=== PATIENT | female | born 1955 | race Caucasian/White ===

== ENCOUNTER 2022-03-03 13:14 | Observation (INO) ==
--- NOTE | 2022-03-03 13:34 | Emergency Department Note ---
Weakness HPI General Chief complaint: Stroke Symptoms Stated complaint: left sided weakness, left arm Time Seen by Provider: 03/03/22 13:17 Source: patient Mode of arrival: ambulatory Limitations: no limitations History of Present Illness HPI Narrative: Narrative: 66-year-old female with past medical history of hypertension, diabetes mellitus, DVT, mini strokes on Eliquis and as below presents with sudden onset of headache and left arm weakness for 45 minutes prior to arrival to ER. No dizziness chest pain abdominal pain nausea vomiting constipation diarrhea fever or chills. Her blood pressure is 125/69 pulse 83 respiration 20 temperature 98.6 O2 sat 97% on room air Related Data Home Medications Medication Instructions Recorded Confirmed furosemide 40 mg tablet 40 mg PO QDAY 06/30/17 03/03/22 losartan 100 mg tablet 100 mg PO QDAY 06/30/17 03/03/22 multivitamin (Multiple Vitamins 1 tab PO QDAY 06/30/17 03/03/22 tablet) spironolactone 25 mg tablet 25 mg PO QAM 06/30/17 03/03/22 zinc 1 tab PO QDAY 07/27/17 03/03/22 cinnamon bark 500 mg capsule 500 mg PO BID 03/10/18 03/03/22 insulin aspart U-100 100 unit/mL 10 unit subcut QID diabetes 10/15/20 03/03/22 (3 mL) subcutaneous pen (Novolog Flexpen U-100 Insulin aspart) insulin detemir U-100 100 unit/mL 34 unit subcut BID 10/15/20 03/03/22 (3 mL) subcutaneous pen (Levemir FlexTouch U-100 Insulin) apixaban 5 mg tablet (Eliquis) 5 mg PO BID 08/16/21 03/03/22 mycophenolate mofetil 500 mg tablet 500 mg PO BID 08/16/21 03/03/22 cholecalciferol (vitamin D3) 25 25 mcg PO QDAY 03/04/22 03/04/22 mcg (1,000 unit) tablet (Vitamin D3) Previous Rx's Medication Instructions Recorded blood-glucose meter (FreeStyle #1 ea 10/04/17 Me[place]any Lite kit) pen needle, diabetic 32 gauge x #90 ea 01/28/18 5/32" (Comfort EZ Pen Vale) simvastatin 40 mg tablet 40 mg PO QHS cholesterol #90 tabs 03/28/19 gabapentin 100 mg capsule 100 mg PO QHS #30 caps 04/10/20 Allergies Allergy/AdvReac Type Severity Reaction Status Date / Time isosorbide [From Ismo] Allergy Unknown Rash, Verified 03/03/22 13:22 nausea, fever Review of Systems ROS ROS Narrative: Narrative: All systems ED: reviewed and negative except as stated. 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) Arthritis (Chronic) Blood clot in vein (Chronic) Muscle pain (Chronic) DM type 1 (diabetes mellitus, type 1) (Chronic) Gallbladder problem (Chronic) Hypertension, essential (Chronic) Hyperlipidemia (Chronic) Joint pain (Chronic) Stomach ulcer (Chronic ~1998) Stroke (Acute) CKD (chronic kidney disease) (Chronic) Systemic lupus erythematosus (Acute ~1981) Fibromyalgia (Acute) Diabetic nephropathy, type I (Chronic) Hypertensive kidney disease (Chronic) CKD (chronic kidney disease) stage 3, GFR 30-59 ml/min (Chronic) Hypertension 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) Localized edema due to fluid overload (Chronic) Vitamin D deficiency (Chronic) Secondary hyperparathyroidism of renal origin (Chronic) Renal failure (Chronic) Diabetes (Chronic) Lupus (Chronic) AGUSTO positive (Acute) Polyarthralgia (Acute) Osteoarthritis (Acute) Trigger finger of right hand (Acute) Elevation of levels of liver transaminase levels (Acute) Leukocytosis, unspecified (Acute) Transaminitis (Acute) Myalgia, unspecified site (Acute) Medical History (Updated 03/03/22 @ 18:09 by Eliezer Arteaga MD) AGUSTO positive Arthritis Blood clot in vein CKD (chronic kidney disease) CKD (chronic kidney disease) stage 3, GFR 30-59 ml/min Diabetes Diabetic nephropathy, type I DM type 1 (diabetes mellitus, type 1) at 8 years old Fibromyalgia Gallbladder problem Removed Head injury Hyperlipidemia Hypertension associated with chronic kidney disease due to type 1 diabetes mellitus Hypertension, essential Hypertensive kidney disease Joint pain Localized edema due to fluid overload alf current use of anticoagulant therapy (~1999) Lupus Muscle pain Osteoarthritis Polyarthralgia Renal failure Secondary hyperparathyroidism of renal origin Stomach ulcer (~1998) Stroke Systemic lupus erythematosus (~1981) Trigger finger of right hand Vitamin D deficiency Surgical History H/O breast biopsy H/O colonoscopy 07/2008 repeat 10 H/O total hysterectomy 1993 History of cholecystectomy 1999 Hx of appendectomy 2000 Hx of tonsillectomy 1972 Family History Family/Other Cancer Aunts Family/Other Cancer Uncles Brother Cancer Diabetes Brothers Hypertension, essential Brothers Heart attack Father Cancer Diabetes Suicide Mother Cancer Hypertension, essential Sister Diabetes Sisters Hypertension, essential Sisters Grandmother Diabetes Maternal Grandmother Diabetes Paternal Family/Other Diabetes Cousins Social History Smoking Status: Never smoker Alcohol Intake Frequency: does not drink Substance Use: does not use Exam Narrative Narrative: Narrative: General Limitations: no limitations General appearance: Present alert and in no apparent distress Eye Eye: Present normal appearance Respiratory Respiratory: Present normal lung sounds bilaterally Cardiovascular Cardiovascular: Present regular rate, normal rhythm and normal heart sounds Adbominal Abdominal: Present soft and normal bowel sounds; Absent tenderness or organome falguni Extremities Extremities: Present other (Weakness left ar as compared to right side with weak cook relief) Neurological Neurological: Present alert and oriented X3 Course Course Course Narrative: Stroke protocol was called. Stat CT scan of head was done which is negative. Consulted telemetry neurology Dr. Mcleod we had the CT result and will order the CT angio of head and neck. Dr. Driver saw CT and you scan of head and neck and advised admission for further work-up of stroke. Arnav will be admitted he re to the medical surgical floor as discussed with Dr. Denis Patients UA came back which is consistent with UTI. Cipro 4 mg IV will be given Vital Signs Vital signs: Vital Signs Temperature 98.6 F 03/03/22 13:19 Pulse Rate 83 03/03/22 13:19 Respiratory Rate 20 03/03/22 13:19 Blood Pressure 125/69 03/03/22 13:19 Pulse Oximetry (%) 97 03/03/22 13:19 Oxygen Delivery Method 03/03/22 13:19 Temperature 97.4 F 03/04/22 04:01 Pulse Rate 70 03/04/22 06:01 Respiratory Rate 18 03/04/22 06:01 Blood Pressure 132/62 03/04/22 06:01 Pulse Oximetry (%) 98 03/04/22 06:01 Oxygen Delivery Method 03/04/22 06:01 MDM MDM Narrative Medical decision making narrative: Narrative: Lab Data Result diagrams: 03/04/22 06:00 03/04/22 06:00 Labs: Lab Results 03/03/22 03/03/22 03/03/22 Range/Units 13:47 13:49 13:49 WBC 9.4 (4.5-11.0) K/mcL RBC 4.11 (3.59-5.38) M/mcL Hgb 11.3 (11.2-15.7) g/dL Hct 37.2 (34.1-44.9) % POC Hct (36-48) MCV 90.5 (80.0-100.0) fL MCH 27.5 (26.0-34.0) pg MCHC 30.4 L (31.0-36.0) g/dL RDW 13.1 (11.5-14.5) % Plt Count 320 (140-440) K/mcL MPV 9.7 (8.8-12.5) fL Immature Gran % (Auto) 0.4 (0.0-0.5) % Neut % (Auto) 65.6 (38.0-78.0) % Lymph % (Auto) 24.0 (15.5-49.0) % [place] % (Auto) 8.6 (1.0-12.0) % Eos % (Auto) 1.1 (0.0-7.0) % Baso % (Auto) 0.3 (0.0-2.0) % Lymph # (Auto) 2.27 (1.50-4.80) K/mcL [place] # (Auto) 0.81 (0.10-0.90) K/mcL Eos # (Auto) 0.10 (0.00-0.70) K/mcL Baso # (Auto) 0.03 (0.00-0.30) K/mcL Immature Gran # 0.04 (0.00-0.05) K/mcl Absolute Neutrophils 6.19 (1.80-8.00) K/mcL POC PT 14.5 (11.9-14.5) POC INR 1.2 (0.8-1.2) APTT 32.7 (20.0-37.0) sec POC Sodium (133-145) POC Potassium (3.3-5.1) POC Chloride (96-108) POC Total CO2 (22-30) POC BUN (6-20) POC Creatinine (0.6-1.2) POC Glucose (70-105) POC WB Ioniz Calcium (1.16-1.32) Total Bilirubin (0.1-1.0) mg/dL Direct Bilirubin (0-0.3) mg/dL AST (<32) U/L ALT (<40) U/L Alkaline Phosphatase (39-117) U/L Total Protein (5.9-8.4) gm/dL Albumin (3.2-5.2) gm/dL Globulin (2.2-3.7) gm/dL Urine Color Urine Appearance (Clear) Urine pH (5.0-9.0) Ur Specific Isabella (1.000-1.035) Urine Protein (Negative) mg/dL Urine Glucose (UA) (Negative) mg/dL Urine Ketones (Negative) mg/dL Urine Occult Blood (Negative) mg/dL Urine Nitrate (Negative) Urine Bilirubin (Negative) mg/dL Urine Urobilinogen mg/dL Ur Leukocyte Esterase (Negative) /uL Urine RBC (0-3) /hpf Urine WBC (0-4) /hpf Ur Squamous Epith Cells (0-4) /hpf Urine Bacteria (0) /hpf Urine Mucus (None) /hpf Ur Culture Indicated? POC Troponin I (0.02-0.08) 03/03/22 03/03/22 03/03/22 Range/Units 13:49 13:56 13:59 WBC (4.5-11.0) K/mcL RBC (3.59-5.38) M/mcL Hgb (11.2-15.7) g/dL Hct (34.1-44.9) % POC Hct 35.0 L (36-48) MCV (80.0-100.0) fL MCH (26.0-34.0) pg MCHC (31.0-36.0) g/dL RDW (11.5-14.5) % Plt Count (140-440) K/mcL MPV (8.8-12.5) fL Immature Gran % (Auto) (0.0-0.5) % Neut % (Auto) (38.0-78.0) % Lymph % (Auto) (15.5-49.0) % [place] % (Auto) (1.0-12.0) % Eos % (Auto) (0.0-7.0) % Baso % (Auto) (0.0-2.0) % Lymph # (Auto) (1.50-4.80) K/mcL [place] # (Auto) (0.10-0.90) K/mcL Eos # (Auto) (0.00-0.70) K/mcL Baso # (Auto) (0.00-0.30) K/mcL Immature Gran # (0.00-0.05) K/mcl Absolute Neutrophils (1.80-8.00) K/mcL POC PT (11.9-14.5) POC INR (0.8-1.2) APTT (20.0-37.0) sec POC Sodium 140 (133-145) POC Potassium 3.9 (3.3-5.1) POC Chloride 103 (96-108) POC Total CO2 26.0 (22-30) POC BUN 33 H (6-20) POC Creatinine 1.2 (0.6-1.2) POC Glucose 90 (70-105) POC WB Ioniz Calcium 1.22 (1.16-1.32) Total Bilirubin 0.3 (0.1-1.0) mg/dL Direct Bilirubin < 0.2 (0-0.3) mg/dL AST 15 (<32) U/L ALT 11 (<40) U/L Alkaline Phosphatase 80 (39-117) U/L Total Protein 6.6 (5.9-8.4) gm/dL Albumin 4.1 (3.2-5.2) gm/dL Globulin 2.5 (2.2-3.7) gm/dL Urine Color Urine Appearance (Clear) Urine pH (5.0-9.0) Ur Specific Isabella (1.000-1.035) Urine Protein (Negative) mg/dL Urine Glucose (UA) (Negative) mg/dL Urine Ketones (Negative) mg/dL Urine Occult Blood (Negative) mg/dL Urine Nitrate (Negative) Urine Bilirubin (Negative) mg/dL Urine Urobilinogen mg/dL Ur Leukocyte Esterase (Negative) /uL Urine RBC (0-3) /hpf Urine WBC (0-4) /hpf Ur Squamous Epith Cells (0-4) /hpf Urine Bacteria (0) /hpf Urine Mucus (None) /hpf Ur Culture Indicated? POC Troponin I 0.01 L (0.02-0.08) 03/03/22 Range/Units 16:10 WBC (4.5-11.0) K/mcL RBC (3.59-5.38) M/mcL Hgb (11.2-15.7) g/dL Hct (34.1-44.9) % POC Hct (36-48) MCV (80.0-100.0) fL MCH (26.0-34.0) pg MCHC (31.0-36.0) g/dL RDW (11.5-14.5) % Plt Count (140-440) K/mcL MPV (8.8-12.5) fL Immature Gran % (Auto) (0.0-0.5) % Neut % (Auto) (38.0-78.0) % Lymph % (Auto) (15.5-49.0) % [place] % (Auto) (1.0-12.0) % Eos % (Auto) (0.0-7.0) % Baso % (Auto) (0.0-2.0) % Lymph # (Auto) (1.50-4.80) K/mcL [place] # (Auto) (0.10-0.90) K/mcL Eos # (Auto) (0.00-0.70) K/mcL Baso # (Auto) (0.00-0.30) K/mcL Immature Gran # (0.00-0.05) K/mcl Absolute Neutrophils (1.80-8.00) K/mcL POC PT (11.9-14.5) POC INR (0.8-1.2) APTT (20.0-37.0) sec POC Sodium (133-145) POC Potassium (3.3-5.1) POC Chloride (96-108) POC Total CO2 (22-30) POC BUN (6-20) POC Creatinine (0.6-1.2) POC Glucose (70-105) POC WB Ioniz Calcium (1.16-1.32) Total Bilirubin (0.1-1.0) mg/dL Direct Bilirubin (0-0.3) mg/dL AST (<32) U/L ALT (<40) U/L Alkaline Phosphatase (39-117) U/L Total Protein (5.9-8.4) gm/dL Albumin (3.2-5.2) gm/dL Globulin (2.2-3.7) gm/dL Urine Color Yellow Urine Appearance Clear (Clear) Urine pH 6.0 (5.0-9.0) Ur Specific Isabella 1.027 (1.000-1.035) Urine Protein Negative (Negative) mg/dL Urine Glucose (UA) Negative (Negative) mg/dL Urine Ketones Negative (Negative) mg/dL Urine Occult Blood Negative (Negative) mg/dL Urine Nitrate Negative (Negative) Urine Bilirubin Negative (Negative) mg/dL Urine Urobilinogen Negative mg/dL Ur Leukocyte Esterase 250 A (Negative) /uL Urine RBC 1 (0-3) /hpf Urine WBC 23 H (0-4) /hpf Ur Squamous Epith Cells 2 (0-4) /hpf Urine Bacteria None (0) /hpf Urine Mucus Mod A (None) /hpf Ur Culture Indicated? yes POC Troponin I (0.02-0.08) ED POC Tests ED POC Tests: SYDNEE - SARS Antigen Negative Discharge Plan Patient/Caregiver Discharge Instructions Pt seen by DEVICE TEST ENGINEER/PA only: No Clinical Impression: Stroke, UTI (urinary tract infection), bacterial Patient Disposition: Xfer As Inpt ([facility]) Condition: Fair Discharge Date/Time: 03/03/22 17:37 Discharge Location: [facility] Inpatient Discharge Comment: to ICU at 1737
[2022-03-03 13:49] LABS: POC INR 1.2 (0.8-1.2); POC Pro Time 14.5 (11.9-14.5)
[2022-03-03 14:03] LABS: POC Calcium, Ionized 1.22 (1.16-1.32); POC Creatinine 1.2 (0.6-1.2); POC Potassium 3.9 (3.3-5.1)
[2022-03-03 14:24] LABS: Basophils # (Auto) 0.03 K/mcL (0.00-0.30); Basophils % (Auto) 0.3 % (0.0-2.0); Eosinophils % (Auto) 1.1 % (0.0-7.0); Hematocrit 37.2 % (34.1-44.9); Hemoglobin 11.3 g/dL (11.2-15.7); Lymphocytes # (Auto) 2.27 K/mcL (1.50-4.80); Mean Cell Volume 90.5 fL (80.0-100.0); Mean Corpuscular HGB Conc 30.4 g/dL (31.0-36.0); Mean Platelet Volume 9.7 fL (8.8-12.5); Monocytes # (Auto) 0.81 K/mcL (0.10-0.90); Monocytes % (Auto) 8.6 % (1.0-12.0); Neutrophils % (Auto) 65.6 % (38.0-78.0); Platelet Count 320 K/mcL (140-440); RBC 4.11 M/mcL (3.59-5.38); Red Cell Distribution Width 13.1 % (11.5-14.5); WBC 9.4 K/mcL (4.5-11.0)
--- NOTE | 2022-03-03 14:29 | Cat Scan Report ---
CLINICAL INFORMATION: Neuro deficit acute stroke COMPARISON: 08/16/2021. TECHNIQUE: 2.5 mm helical slices were obtained in the skull base to vertex. Following reconstruction, axial reformatted images were reviewed at bone and parenchymal windows. The exam was performed using radiation dose optimization techniques including, but not limited to, automated exposure control, adjustment of the mA and/or kV according to patient size and use of iterative reconstruction technique. FINDINGS: The ventricles, sulci, fissures, and cisterns are symmetrically enlarged compatible with mild age-related atrophy. No extra-axial fluid collections are identified. Mild patchy chronic ischemic changes, in the deep cerebral white matter, are expected for age. There is no hemorrhage, mass effect, or edema. Bone windows show no osseous abnormality. IMPRESSION: Mild atrophy and chronic ischemic changes in the deep cerebral white matter-expected for age. No acute findings Interpreted and Authenticated by: Dusty Valencia 03/03/22
--- NOTE | 2022-03-03 14:55 | Cat Scan Report ---
CLINICAL INFORMATION: Code stroke COMPARISON: None. TECHNIQUE: 80 cc of Isovue-370 were injected intravenously , and using SmartPrep to maximize cerebral arterial opacification, 0.625 mm helical slices were obtained from the skull base through the cerebral vertex. Following reconstruction , sagittal, coronal and axial reformatted images were processed and reviewed at multiple windows and levels. 3D volume rendered and MIP images were acquired at a independent workstation. The exam was performed using radiation dose optimization techniques including, but not limited to, automated exposure control, adjustment of the mA and/or kV according to patient size and use of iterative reconstruction technique. FINDINGS: Moderate fibrofatty calcific plaque within the cavernous carotids do not appear to result in significant stenoses less than 50%. The remaining intracranial internal carotid, vertebral, basilar, anterior, middle and posterior cerebral arteries and their branches are well-opacified and normal in contour and caliber without significant stenosis, occlusion or other pathology. Superficial/deep cerebral veins and deep venous sinuses are widely patent IMPRESSION: No evidence of embolus or thrombus. Mild (less than 50%) stenoses in the cavernous segments of both intracranial internal carotid arteries due to calcific and fibrofatty plaque Interpreted and Authenticated by: Dusty Valencia 03/03/22
--- NOTE | 2022-03-03 15:05 | Cat Scan Report ---
CLINICAL INFORMATION: Code stroke COMPARISON: None. TECHNIQUE: 80 cc of Isovue-300 were injected intravenously followed by 40 cc of normal saline flush. Using SmartPrep, 0.625 helical slices were obtained from the thoracic aortic arch through the [place]. Following reconstruction, 2.5 mm sagittal, coronal and axial reformatted images were processed. MIPS , 3-D volume rendering and CPR images were also constructed. The exam was performed using radiation dose optimization techniques including, but not limited to, automated exposure control, adjustment of the mA and/or kV according to patient size and use of iterative reconstruction technique. FINDINGS: The thoracic aortic arch is normal diameter with minimal intimal thickening and conventional aortic branching. The brachiocephalic, both subclavian, both common, internal and external carotid and both vertebral arteries are widely patent without significant abnormality. Scattered thyroid nodules are unchanged: 13 mm colloid cyst superior pole left thyroid, 10 mm colloid cyst in the upper right thyroid, 12 mm mixed solid cystic nodule posterior inferior right thyroid. At C5-C6 broad disc spur complex results in moderate central canal and severe bilateral IV foraminal narrowing with exiting C6 nerve root impingement. At C6-7 broad disc spur complex results in moderate left IV foraminal line with exiting left C7 nerve root impingement. IMPRESSION: 1. Thoracic aortic arch, brachiocephalic, all carotid, both vertebral, and both subclavian arteries are widely patent 2. Thyroid nodule stable since comparison CT six months prior. Ultrasound was performed on 08/29/2021 suggest repeat thyroid ultrasound August 2022. 3. Degenerative stenosis in the lower cervical spine as described Interpreted and Authenticated by: Dusty Valencia 03/03/22
[2022-03-03 15:16] LABS: ALT/SGPT 11 U/L (<40); AST/SGOT 15 U/L (<32); Albumin 4.1 gm/dL (3.2-5.2); Alkaline Phosphatase 80 U/L (39-117); Bilirubin,Direct < 0.2 mg/dL (0-0.3); Bilirubin,Total 0.3 mg/dL (0.1-1.0); Globulin 2.5 gm/dL (2.2-3.7)
--- NOTE | 2022-03-03 17:03 | Internal Med History&Physical ---
HPI History of Present Illness Patient information: Note initiated : 03/03/22 at 4:55 pm Service Date, if different from initiated Date: [] Patient: Gini Oliveira 66 y/o F admitted on for left sided weakness, left arm. Chief Complaint: [left upper extremity weakness and numbness] Chief complaint: left upper extremity weakness and numbness History of present illness: Ms. Oliveira is a 66 year old F history of stroke affecting her right side of body in 1998, on Eliquis, SLE, type 1 diabetes with diabetic nephropathy, essential hypertension, mixed dyslipidemia, presenting with 1 day history of acute onset right upper extremity numbness and weakness. Today at around 12:20 PM when she was having lunch, she experienced acute onset right upper extremity weakness numbness and tingling. Her symptoms of weakness numbness and tingling of her left upper extremities have subjectively much improved right now. She was also experiencing left lower extremity weakness but it completely resolved before coming to our ER. She denies any chest pain or palpitations. She denies any shortness of breath. She is experiencing headache but it is at the baseline. Vital signs within normal limits. Labs also within normal limits. CT of the head without contrast did not show any acute intracranial pathologies. CT angiogram of the head and neck showing mild less than 50% stenosis in the cavernous segments of both intracranial internal carotid arteries due to calcific and fibrofatty plaques. No evidence of embolus or thrombus. Constitutional Constitutional: Absent chills, excessive sweating, fatigue, fever(s) or weakness EENT Eyes: Absent blurry vision, change in vision, loss of vision or other visual disturbances Ears: Absent decreased hearing or tinnitus Nose, mouth and throat: Absent abnormal hearing, dry mouth, headache(s), nasal congestion or sore throat Cardiovascular Cardiovascular: Absent chest pain, chest pain at rest, edema, irregular heart rhythm or palpatations Respiratory Respiratory: Absent cough, dyspnea or wheezing Gastrointestinal Gastrointestinal: Absent abdominal pain, constipation, diarrhea, nausea or vomiting Musculoskeletal Musculoskeletal: Absent back pain, deformity, limited range of motion, muscle cramps, muscle weakness or numbness Integumentary Integumentary: Absent lesions, rash or wounds Neurological Neurological: Present focal weakness, headache(s), numbness and tingling Psychiatric Psychiatric: Absent anxiety, depression or hallucinations PFSH PFSH All Active Problems (Updated 03/03/22 @ 17:15 by Maycol Denis MD) Head injury (Acute) Muscle strain of right shoulder (Acute) Multiple thyroid nodules (Acute) 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) Arthritis (Chronic) Blood clot in vein (Chronic) Muscle pain (Chronic) DM type 1 (diabetes mellitus, type 1) (Chronic) Gallbladder problem (Chronic) Hypertension, essential (Chronic) Hyperlipidemia (Chronic) Joint pain (Chronic) Stomach ulcer (Chronic ~1998) Stroke (Acute) CKD (chronic kidney disease) (Chronic) Systemic lupus erythematosus (Acute ~1981) Fibromyalgia (Acute) Diabetic nephropathy, type I (Chronic) Hypertensive kidney disease (Chronic) CKD (chronic kidney disease) stage 3, GFR 30-59 ml/min (Chronic) Hypertension associated with chronic kidney disease due to type 1 diabetes mellitus (Chronic) Localized edema due to fluid overload (Chronic) Vitamin D deficiency (Chronic) Secondary hyperparathyroidism of renal origin (Chronic) Renal failure (Chronic) Diabetes (Chronic) Lupus (Chronic) AGUSTO positive (Acute) Polyarthralgia (Acute) Osteoarthritis (Acute) Trigger finger of right hand (Acute) Elevation of levels of liver transaminase levels (Acute) Leukocytosis, unspecified (Acute) Transaminitis (Acute) Myalgia, unspecified site (Acute) Medical History (Updated 03/03/22 @ 17:15 by Maycol Denis MD) AGUSTO positive Arthritis Blood clot in vein CKD (chronic kidney disease) CKD (chronic kidney disease) stage 3, GFR 30-59 ml/min Diabetes Diabetic nephropathy, type I DM type 1 (diabetes mellitus, type 1) at 8 years old Fibromyalgia Gallbladder problem Removed Head injury Hyperlipidemia Hypertension associated with chronic kidney disease due to type 1 diabetes mellitus Hypertension, essential Hypertensive kidney disease Joint pain Localized edema due to fluid overload FPC current use of anticoagulant therapy (~1999) Lupus Muscle pain Osteoarthritis Polyarthralgia Renal failure Secondary hyperparathyroidism of renal origin Stomach ulcer (~1998) Stroke Systemic lupus erythematosus (~1981) Trigger finger of right hand Vitamin D deficiency Surgical History H/O breast biopsy H/O colonoscopy 07/2008 repeat 10 H/O total hysterectomy 1993 History of cholecystectomy 1999 Hx of appendectomy 1999 Hx of tonsillectomy 1972 Family History Family/Other Cancer Aunts Family/Other Cancer Uncles Brother Cancer Diabetes Brothers Hypertension, essential Brothers Heart attack Father Cancer Diabetes Suicide Mother Cancer Hypertension, essential Sister Diabetes Sisters Hypertension, essential Sisters Grandmother Diabetes Maternal Grandmother Diabetes Paternal Family/Other Diabetes Cousins Social History marital status: other: Children-3 smoking status: Never smoker alcohol intake frequency: does not drink substance use type: does not use MEDS/ALLERGIES Home Medications and Allergies Home Medications Medication Instructions Recorded Confirmed Type furosemide 40 mg tablet 40 mg PO QDAY 06/30/17 08/16/21 History losartan 100 mg tablet 100 mg PO QPM 06/30/17 08/16/21 History multivitamin (Multiple Vitamins 1 tab PO QDAY 06/30/17 08/16/21 History tablet) spironolactone 25 mg tablet 25 mg PO QAM 06/30/17 08/16/21 History cholecalciferol (vitamin D3) 1,000 each PO QDAY 07/27/17 08/16/21 History zinc PO QDAY 07/27/17 08/16/21 History blood-glucose meter (FreeStyle #1 ea 10/04/17 08/16/21 Rx [place] Lite kit) pen needle, diabetic 32 gauge x #90 ea 01/28/18 08/16/21 Rx 5/32" (Comfort EZ Pen [place]) cinnamon bark 500 mg capsule 500 mg PO BID 03/10/18 08/16/21 History simvastatin 40 mg tablet 40 mg PO QHS cholesterol #90 tabs 03/28/19 08/16/21 Rx gabapentin 100 mg capsule 100 mg PO QHS #30 caps 04/10/20 08/16/21 Rx insulin aspart U-100 100 unit/mL 10 unit subcut QID diabetes 10/15/20 08/16/21 History (3 mL) subcutaneous pen (Novolog Flexpen U-100 Insulin aspart) insulin detemir U-100 100 unit/mL 34 unit subcut BID 10/15/20 08/16/21 History (3 mL) subcutaneous pen (Levemir FlexTouch U-100 Insulin) apixaban 5 mg tablet (Eliquis) 5 mg PO BID 08/16/21 08/16/21 History mycophenolate mofetil 500 mg tablet 500 mg PO BID 08/16/21 08/16/21 History Allergies Allergy/AdvReac Type Severity Reaction Status Date / Time isosorbide [From Isct] Allergy Unknown Rash, Verified 03/03/22 13:22 nausea, fever EXAM Constitutional Vitals: Temp Pulse Resp BP Pulse Ox O2 Del Method 37.0 C 77 15 128/53 98 03/03/22 13:19 03/03/22 16:16 03/03/22 16:16 03/03/22 16:16 03/03/22 16:16 03/03/22 13:28 General appearance: cooperative and no acute distress Head Head exam: Present atraumatic and normocephalic Eye Eye exam: Present EOMI and PERRL ENT ENT exam: Present mucous membranes moist, normal exam and normal external ear exam Neck Neck exam: Present normal inspection; Absent lymphadenopathy, tenderness or thyromegaly Respiratory Respiratory exam: Absent accessory muscle use, respiratory distress or wheezes Cardiovascular Cardiovascular exam: Present normal rate and rhythm; Absent JVD GI/Abdominal GI/Abdominal exam: Present normal bowel sounds and soft; Absent organomegaly or tenderness Extremities Exam Extremities exam: Present full ROM, normal capillary refill and normal inspection; Absent tenderness Neurological Exam Neurological exam: Present alert, CN II-XII intact, motor sensory deficit and oriented X3 Additional comments: Motor strength 4/5 left upper extremities major muscle groups; 5/5 all other extremities Light touch sensation reduced left hand up to wrist level Coordinations such as [id number] and rapid hand movement of the left s adriana impaired. Psychiatric Psychiatric exam: Present normal affect and normal mood; Absent anxious or depressed Skin Skin exam: Present dry and intact DATA Data Completed and Pending Labs: Labs from last 24 hours 03/03/22 03/03/22 03/03/22 16:10 13:59 13:56 WBC RBC Hgb Hct POC Hct 35.0 L MCV MCH MCHC RDW Plt Count MPV Immature Gran % (Auto) Neut % (Auto) Lymph % (Auto) [place] % (Auto) Eos % (Auto) Baso % (Auto) Lymph # (Auto) [place] # (Auto) Eos # (Auto) Baso # (Auto) Immature Gran # Absolute Neutrophils POC PT POC INR APTT POC Sodium 140 POC Potassium 3.9 POC Chloride 103 POC Total CO2 26.0 POC BUN 33 H POC Creatinine 1.2 POC Glucose 90 POC WB Ioniz Calcium 1.22 Total Bilirubin Direct Bilirubin AST ALT Alkaline Phosphatase Total Protein Albumin Globulin Urine Color Pending Urine Appearance Pending Urine pH Pending Ur Specific [place] Pending Urine Protein Pending Urine Glucose (UA) Pending Urine Ketones Pending Urine Occult Blood Pending Urine Nitrate Pending Urine Bilirubin Pending Urine Urobilinogen Pending Ur Leukocyte Esterase Pending POC Troponin I 0.01 L 03/03/22 03/03/22 03/03/22 13:49 13:49 13:49 WBC 9.4 RBC 4.11 Hgb 11.3 Hct 37.2 POC Hct MCV 90.5 MCH 27.5 MCHC 30.4 L RDW 13.1 Plt Count 320 MPV 9.7 Immature Gran % (Auto) 0.4 Neut % (Auto) 65.6 Lymph % (Auto) 24.0 [place] % (Auto) 8.6 Eos % (Auto) 1.1 Baso % (Auto) 0.3 Lymph # (Auto) 2.27 [place] # (Auto) 0.81 Eos # (Auto) 0.10 Baso # (Auto) 0.03 Immature Gran # 0.04 Absolute Neutrophils 6.19 POC PT POC INR APTT 32.7 POC Sodium POC Potassium POC Chloride POC Total CO2 POC BUN POC Creatinine POC Glucose POC WB Ioniz Calcium Total Bilirubin 0.3 Direct Bilirubin < 0.2 AST 15 ALT 11 Alkaline Phosphatase 80 Total Protein 6.6 Albumin 4.1 Globulin 2.5 Urine Color Urine Appearance Urine pH Ur Specific [place] Urine Protein Urine Glucose (UA) Urine Ketones Urine Occult Blood Urine Nitrate Urine Bilirubin Urine Urobilinogen Ur Leukocyte Esterase POC Troponin I 03/03/22 13:47 WBC RBC Hgb Hct POC Hct MCV MCH MCHC RDW Plt Count MPV Immature Gran % (Auto) Neut % (Auto) Lymph % (Auto) [place] % (Auto) Eos % (Auto) Baso % (Auto) Lymph # (Auto) [place] # (Auto) Eos # (Auto) Baso # (Auto) Immature Gran # Absolute Neutrophils POC PT 14.5 POC INR 1.2 APTT POC Sodium POC Potassium POC Chloride POC Total CO2 POC BUN POC Creatinine POC Glucose POC WB Ioniz Calcium Total Bilirubin Direct Bilirubin AST ALT Alkaline Phosphatase Total Protein Albumin Globulin Urine Color Urine Appearance Urine pH Ur Specific [place] Urine Protein Urine Glucose (UA) Urine Ketones Urine Occult Blood Urine Nitrate Urine Bilirubin Urine Urobilinogen Ur Leukocyte Esterase POC Troponin I A/P Assessment and plan (1) DM type 1 (diabetes mellitus, type 1): Status: Chronic Comment: at 8 years old Qualifiers: Diabetes mellitus complication status: without complication Qualified Code(s): E10.9 - Type 1 diabetes mellitus without complications (2) Hypertension, essential: Status: Chronic (3) Hyperlipidemia: Status: Chronic Qualifiers: Hyperlipidemia type: mixed hyperlipidemia Qualified Code(s): E78.2 - Mixed hyperlipidemia (4) Diabetic nephropathy, type I: Status: Chronic (5) Stroke: Status: Acute (6) Systemic lupus erythematosus: Status: Acute Qualifiers: Systemic lupus erythematosus type: unspecified Systemic lupus erythematosus organ involvement: unspecified Qualified Code(s): M32.9 - Systemic lupus erythematosus, unspecified Narrative A/P Narrative: Assessment and Plans: 1. Acute ischemic stroke affecting the left side: Observation med surg telemetry Neuro Chek q2hr Permissive hypertensive X48hr HgA1c Lipid panel Aspirin Eliquis Statin Physical therapy Occupational therapy 2D echocardiogram MRI brain stroke protocol 2. T1DM with diabetic nephropathy: HgA1c Lantus 34 unit BID SSI AC HS Accu Chek AC HS Hypoglycemia protocol Diabetic diet 3. Essential HTN: Currently normotensive Permissive hypertensive X48hr 4. Dyslipidemia: Lipid panel Continue statin therapy 5. Systemic lupus erythematosus: Continue Cellcept GI ppx: not currently indicated DVT ppx: Eliquis Code status: Full Prognosis: guarded Disposition: observation med surg tele; PT OT Time Spent With Patient Time: Total time spent is greater than 50% in coordination of care (as documented) at patient's floor/unit and/or counseling patient: Total time spent with greater than 50% in coordination of care (as documented) at patient's floor/unit and/or counseling patient:: 50 - 70 minutes
[2022-03-03 17:08] LABS: Appearance,Urine CLEAR (Clear); Bilirubin,Urine Negative (Negative); Color,Urine YELLOW; Culture Indicated,Urine yes; Glucose,Urine (UA) Negative (Negative); Ketones,Urine Negative (Negative); Leukocyte Esterase,Urine 250 /uL (Negative); Mucus,Urine MOD /hpf; Nitrate,Urine Negative (Negative); Protein,Urine Negative (Negative); Specific Gravity,Urine 1.027 (1.000-1.035); Urine Blood Negative (Negative); Urine RBC 1 /hpf (0-3); Urine Squamous Epithelial Cell 2 /hpf (0-4); Urine WBC 23 /hpf (0-4); Urobilinogen,Urine Negative
[2022-03-03] MEDS ORDERED: DEXTROSE 50% 50 ML VIAL IV PRN (17:43)
[2022-03-03] MEDS ORDERED: ONDANSETRON 4 MG/2 ML VIAL IV PRN (17:43)
[2022-03-03] MEDS ORDERED: hydrALAZINE 20 MG/ML VIAL IV PRN (17:43)
[2022-03-03] MEDS ORDERED: SENNOSIDES 1 TABLET PO PRN (17:43)
[2022-03-03] MEDS ORDERED: DEXTROSE 31 GM ORAL.SUSP PO PRN (17:43)
[2022-03-03] MEDS ORDERED: IPRATROPIUM/ALBUTEROL 3 ML AMPUL.NEB NEB PRN (17:43)
[2022-03-03] MEDS ORDERED: LACTULOSE 20 GM/30 ML ORAL.SOL PO PRN (17:43)
[2022-03-03] MEDS ORDERED: ACETAMINOPHEN 325 MG TABLET PO PRN (17:43)
[2022-03-03] MEDS: INSULIN LISPRO 1 UNIT/0.01 ML UNIT SQ SCH ×2 (17:59→21:13)
[2022-03-03] MEDS ORDERED: CIPROFLOXACIN 400 MG/200 ML BAG IV ONE (18:07)
[2022-03-03] MEDS: MYCOPHENOLATE 250 MG CAPSULE PO SCH (20:13)
[2022-03-03] MEDS ORDERED: SIMVASTATIN 40 MG TABLET PO SCH (21:00)
[2022-03-03] MEDS ORDERED: GABAPENTIN 100 MG CAPSULE PO SCH ×2 (21:00)
[2022-03-03] MEDS: APIXABAN 5 MG TABLET PO SCH (21:12)
[2022-03-03] MEDS: DOCUSATE SODIUM 100 MG CAPSULE PO SCH (21:13)
[2022-03-03] MEDS: 0.9 % SODIUM CHLORIDE 10 ML SYRINGE IV SCH (21:14)
[2022-03-03] MEDS: INSULIN GLARGINE, HUMAN 1 UNIT/0.01 ML SQ SCH (21:14)
[2022-03-04] MEDS: 0.9 % SODIUM CHLORIDE 10 ML SYRINGE IV SCH ×2 (06:22→16:05)
[2022-03-04 06:46] LABS: Basophils # (Auto) 0.03 K/mcL (0.00-0.30); Basophils % (Auto) 0.3 % (0.0-2.0); Eosinophils # (Auto) 0.17 K/mcL (0.00-0.70); Eosinophils % (Auto) 1.9 % (0.0-7.0); Hematocrit 37.8 % (34.1-44.9); Hemoglobin 11.3 g/dL (11.2-15.7); Lymphocytes # (Auto) 2.84 K/mcL (1.50-4.80); Lymphocytes % (Auto) 32.1 % (15.5-49.0); Mean Cell Volume 92.6 fL (80.0-100.0); Mean Corpuscular HGB Conc 29.9 g/dL (31.0-36.0); Mean Platelet Volume 9.8 fL (8.8-12.5); Monocytes # (Auto) 0.71 K/mcL (0.10-0.90); Neutrophils % (Auto) 57.5 % (38.0-78.0); Platelet Count 298 K/mcL (140-440); RBC 4.08 M/mcL (3.59-5.38); WBC 8.9 K/mcL (4.5-11.0)
[2022-03-04 07:18] LABS: ALT/SGPT 9 U/L (<40); AST/SGOT 19 U/L (<32); Albumin/Globulin Ratio 1.5 (1.0-2.3); Alkaline Phosphatase 74 U/L (39-117); Bilirubin,Total 0.4 mg/dL (0.1-1.0); Blood Urea Nitrogen 23 mg/dL (8-23); Calcium 9.6 mg/dL (8.6-10.4); Carbon Dioxide 25 mmol/L (22-30); Chloride 104 mmol/L (96-108); Globulin 2.6 gm/dL (2.2-3.7); Glomerular Filtration Rate 58; Glucose 88 mg/dL (70-105); HDL Cholesterol 39 mg/dL (>40); LDL Cholesterol,Calculated 77 mg/dL (<100); Non-HDL Cholesterol 101 mg/dL (<130); Phosphorous 3.9 mg/dL (2.5-4.5); Triglycerides 124 mg/dL (<150)
[2022-03-04] MEDS: MYCOPHENOLATE 250 MG CAPSULE PO SCH (07:22)
[2022-03-04] MEDS: INSULIN LISPRO 1 UNIT/0.01 ML UNIT SQ SCH ×2 (07:33→12:32)
[2022-03-04] MEDS: DOCUSATE SODIUM 100 MG CAPSULE PO SCH (08:14)
[2022-03-04] MEDS: INSULIN GLARGINE, HUMAN 1 UNIT/0.01 ML SQ SCH (08:15)
[2022-03-04] MEDS: APIXABAN 5 MG TABLET PO SCH (08:17)
[2022-03-04] MEDS ORDERED: FUROSEMIDE 40 MG TABLET PO SCH (09:00)
[2022-03-04] MEDS ORDERED: MULTIVIT,THER IRON,CA,FA & MIN 1 TABLET PO SCH (09:00)
[2022-03-04] MEDS ORDERED: VITAMIN D3 25 MCG TABLET PO SCH (09:00)
[2022-03-04] MEDS ORDERED: ASPIRIN 81 MG TAB.CHEW CHEWED SCH (09:00)
[2022-03-04] MEDS ORDERED: SPIRONOLACTONE 25 MG TABLET PO SCH (09:00)
--- NOTE | 2022-03-04 11:09 | Magnetic Resonance Report ---
CLINICAL INFORMATION: Acute left-sided weakness and numbness. Evaluate for CVA COMPARISON: None. TECHNIQUE:Sagittal T1 FLAIR, axial, T2 FLAIR propeller, T2 propeller, diffusion, and ADC weighted images were acquired. FINDINGS: The ventricles, sulci, fissures and cisterns are symmetrically enlarged compatible with mild age-related atrophy. Scattered chronic ischemic foci in the deep cerebral white matter are also expected for age. Three small foci of restricted diffusion are seen in the subcortical white matter of the posterior right parietal lobe near vertex. The largest is 7 mm. There are two smaller lesions: five and 2 mm. Findings are compatible with acute nonhemorrhagic lacunar infarcts. Signal void in intracerebral arteries, extra-axial cranial nerves, pituitary and orbits are all normal. IMPRESSION: Three acute lacunar infarcts in the subcortical white matter of the posterior right parietal lobe-near vertex. The largest is 7 mm. No evidence of hemorrhage Interpreted and Authenticated by: Dusty Valencia 03/04/22
--- NOTE | 2022-03-04 13:40 | EKG ---
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
--- NOTE | 2022-03-04 15:01 | Discharge Summary ---
Discharge Provider Provider IMPORTANT FOLLOW-UP INFORMATION FOR PCP: Patient information: Note initiated : 03/04/22 at 2:57 pm Service Date, if different from initiated Date: [] Patient: Gini Oliveira 66 y/o F admitted on 03/03/22 for left sided weakness, left arm, stroke. Chief Complaint: [] Date of admission: 03/03/22 17:32 Discharge date: 03/04/22 Primary care physician: Michelle Brantley Attending physician on admission: Maycol Denis Consults: 03/03/22 Consult to Physician [CONS] Stat Comment: Consulting Provider: Maycol Denis Reason For Exam: Physician to Consult 03/03/22 13:28 Consult to Physician [CONS] Stat Comment: Consulting Provider: [facility] Reason For Exam: Physician to Consult Attending physician on discharge: Maycol Denis COURSE Hospital Course Hospital course: Ms. Oliveira is a 66 year old F history of stroke affecting her right side of body in 1998, on Eliquis, SLE, type 1 diabetes with diabetic nephropathy, essential hypertension, mixed dyslipidemia, presenting with 1 day history of acute onset right upper extremity numbness and weakness. Today at around 12:20 PM when she was having lunch, she experienced acute onset right upper extremity weakness numbness and tingling. Her symptoms of weakness numbness and tingling of her left upper extremities have subjectively much improved right now. She was also experiencing left lower extremity weakness but it completely resolved before coming to our ER. She denies any chest pain or palpitations. She denies any shortness of breath. She is experiencing headache but it is at the baseline. Vital signs within normal limits. Labs also within normal limits. CT of the head without contrast did not show any acute intracranial pathologies. CT angiogram of the head and neck showing mild less than 50% stenosis in the cavernous segments of both intracranial internal carotid arteries due to calcific and fibrofatty plaques. No evidence of embolus or thrombus. 03/04: MRI of the brain showing 3 acute lacunar infarct in the subcortical right matter of the posterior right parietal lobe near vertex. The largest is 7 mm. No e vidence of hemorrhage. Echocardiogram did not show any structural abnormalities. CTA of the head and neck thoracic aortic arch, brachiocephalic, all carotids, both vertebral and both subclavian arteries are widely patent. Physical therapist evaluated the patient's and cleared the patient from going home. Patient will be discharged with baby aspirin and Eliquis and statin therapy. 1 to 2 weeks PCP follow-up appointment made for the patient's. Discharge diagnosis: ischemic stroke Time Spent with Patient Time attestation: Total time spent providing and/or coordinating discharge services: Time spent: Greater than 30 minutes EXAM Constitutional Vitals: Temp Pulse Resp BP Pulse Ox O2 Del Method 36.5 C 88 16 129/66 100 03/04/22 12:43 03/04/22 14:01 03/04/22 14:01 03/04/22 14:01 03/04/22 14:01 03/04/22 14:01 General appearance: cooperative and no acute distress Head Head exam: Present atraumatic and normocephalic Eye Eye exam: Present EOMI and PERRL ENT ENT exam: Present mucous membranes moist, normal exam and normal external ear exam Neck Neck exam: Present normal inspection; Absent lymphadenopathy, tenderness or thyromegaly Respiratory Respiratory exam: Absent accessory muscle use, respiratory distress or wheezes Cardiovascular Cardiovascular exam: Present normal rate and rhythm; Absent JVD GI/Abdominal GI/Abdominal exam: Present normal bowel sounds and soft; Absent organomegaly or tenderness Extremities Exam Extremities exam: Present full ROM, normal capillary refill and normal insp ection; Absent tenderness Neurological Exam Neurological exam: Present alert, CN II-XII intact and oriented X3; Absent motor sensory deficit Psychiatric Psychiatric exam: Present normal affect and normal mood; Absent anxious or depressed Skin Skin exam: Present dry and intact Discharge Data Data Completed and Pending Labs on day of discharge: Labs from last 24 hours 03/04/22 03/04/22 03/03/22 06:00 06:00 16:10 WBC 8.9 RBC 4.08 Hgb 11.3 Hct 37.8 MCV 92.6 MCH 27.7 MCHC 29.9 L RDW 13.0 Plt Count 298 MPV 9.8 Immature Gran % (Auto) 0.2 Neut % (Auto) 57.5 Lymph % (Auto) 32.1 [place] % (Auto) 8.0 Eos % (Auto) 1.9 Baso % (Auto) 0.3 Lymph # (Auto) 2.84 [place] # (Auto) 0.71 Eos # (Auto) 0.17 Baso # (Auto) 0.03 Immature Gran # 0.02 Absolute Neutrophils 5.08 Sodium 139 Potassium 4.0 Chloride 104 Carbon Dioxide 25 Anion Gap 10.0 BUN 23 Creatinine 1.0 GFR Calculation 58 Glucose 88 Calcium 9.6 Phosphorus 3.9 Magnesium 2.2 Total Bilirubin 0.4 Direct Bilirubin AST 19 ALT 9 Alkaline Phosphatase 74 Total Protein 6.6 Albumin 4.0 Globulin 2.6 Albumin/Globulin Ratio 1.5 Triglycerides 124 Cholesterol 140 LDL Cholesterol, Calc 77 Non-HDL Cholesterol 101 HDL Cholesterol 39 L Urine Color Yellow Urine Appearance Clear Urine pH 6.0 Ur Specific [place] 1.027 Urine Protein Negative Urine Glucose (UA) Negative Urine Ketones Negative Urine Occult Blood Negative Urine Nitrate Negative Urine Bilirubin Negative Urine Urobilinogen Negative Ur Leukocyte Esterase 250 A Urine RBC 1 Urine WBC 23 H Ur Squamous Epith Cells 2 Urine Bacteria None Urine Mucus Mod A Ur Culture Indicated? yes 03/03/22 13:49 WBC RBC Hgb Hct MCV MCH MCHC RDW Plt Count MPV Immature Gran % (Auto) Neut % (Auto) Lymph % (Auto) [place] % (Auto) Eos % (Auto) Baso % (Auto) Lymph # (Auto) [place] # (Auto) Eos # (Auto) Baso # (Auto) Immature Gran # Absolute Neutrophils Sodium Potassium Chloride Carbon Dioxide Anion Gap BUN Creatinine GFR Calculation Glucose Calcium Phosphorus Magnesium Total Bilirubin 0.3 Direct Bilirubin < 0.2 AST 15 ALT 11 Alkaline Phosphatase 80 Total Protein 6.6 Albumin 4.1 Globulin 2.5 Albumin/Globulin Ratio Triglycerides Cholesterol LDL Cholesterol, Calc Non-HDL Cholesterol HDL Cholesterol Urine Color Urine Appearance Urine pH Ur Specific [place] Urine Protein Urine Glucose (UA) Urine Ketones Urine Occult Blood Urine Nitrate Urine Bilirubin Urine Urobilinogen Ur Leukocyte Esterase Urine RBC Urine WBC Ur Squamous Epith Cells Urine Bacteria Urine Mucus Ur Culture Indicated? Preliminary micro results at discharge 03/03/22 16:10 Urine Culture - Preliminary Urine - Clean Void [place] Discharge Plan Patient/Caregiver Discharge Instructions Activity: increase activity as tolerated Diet: Consistent Carbohydrate Prescriptions: New Aspirin 81 mg CHEWED DAILY Qty: 0 0RF Continued (DME) blood-glucose meter [FreeStyle [place] Lite] kit See Dose Instructions .ROUTE .MEDSUPPLY Qty: 1 0RF Dose Instruction: As directed Rx Instructions: bid (DME) pen needle, diabetic [Comfort EZ Pen [place]] 32 gauge x 5/32" needle See Dose Instructions .ROUTE .MEDSUPPLY Qty: 90 0RF Dose Instruction: As directed Rx Instructions: once daily simvastatin 40 mg tablet 40 mg PO QHS Qty: 90 1RF losartan 100 mg tablet 100 mg PO QDAY spironolactone 25 mg tablet 25 mg PO QAM furosemide 40 mg tablet 40 mg PO QDAY multivitamin [Multiple Vitamins] tablet 1 tab PO QDAY zinc 1 tab PO QDAY cinnamon bark 500 mg capsule 500 mg PO BID Eliquis 5 mg tablet 5 mg PO BID mycophenolate mofetil 500 mg tablet 500 mg PO BID gabapentin 100 mg capsule 100 mg PO QHS Qty: 30 2RF Rx Instructions: take 2-3 capsules by mouth every night 60-90 minutes before bedtime for sleep Novolog Flexpen U-100 Insulin 100 unit/mL (3 mL) insulin pen 10 unit SUB-Q QID Levemir FlexTouch U-100 Insuln 100 unit/mL (3 mL) insulin pen 34 unit SUBCUT BID Label Comments: INJECT 34 UNITS UNDER THE SKIN TWICE DAILY MAXIMUM DAILY DOSE IS 75 UNITS cholecalciferol (vitamin D3) [Vitamin D3] 25 mcg (1,000 unit) Tablet 25 mcg PO QDAY Follow Up Plan Follow up with: Michelle Brantley MD [Primary Care Provider] - 03/13/22 10:00 am (Please arrive 15 minutes early) Patient Disposition: Home, Self-Care Prognosis: Fair Rehab Potential: Good I certify that the patient requires SNF services: No Overall status at discharge: patient is progressing back to baseline Discharge Orders: Discharge Order (Routine); Ordered 03/04/22 Ordered By: Maycol Denis
== END 2022-03-04 15:50 | disposition home or self-care (01) ==
LOC: ICU 13:14 → ED 13:14 → ICU 17:37
PROVIDERS: ADMIT Internal Medicine; ATTEND Internal Medicine

== ENCOUNTER 2023-01-27 07:12 | Inpatient (IN) ==
[2023-01-27] MEDS ORDERED: IOPAMIDOL 100 ML BOTTLE IV ONE (07:13)
[2023-01-27 07:24] LABS: POC Calcium, Ionized 1.23 (1.16-1.32); POC Creatinine 1.1 (0.6-1.2); POC Potassium 3.8 (3.3-5.1)
[2023-01-27 08:24] LABS: POC Pro Time 11.5 (11.9-14.5)
[2023-01-27 08:27] LABS: Basophils # (Auto) 0.07 K/mcL (0.00-0.30); Basophils % (Auto) 0.6 % (0.0-2.0); Eosinophils # (Auto) 0.14 K/mcL (0.00-0.70); Eosinophils % (Auto) 1.2 % (0.0-7.0); Hematocrit 41.2 % (34.1-44.9); Hemoglobin 12.8 g/dL (11.2-15.7); Lymphocytes % (Auto) 37.9 % (15.5-49.0); Mean Cell Volume 93.4 fL (80.0-100.0); Mean Corpuscular HGB Conc 31.1 g/dL (31.0-36.0); Mean Platelet Volume 9.7 fL (8.8-12.5); Monocytes # (Auto) 0.84 K/mcL (0.10-0.90); Monocytes % (Auto) 6.9 % (1.0-12.0); Neutrophils % (Auto) 52.9 % (38.0-78.0); Platelet Count 370 K/mcL (140-440); RBC 4.41 M/mcL (3.59-5.38); Red Cell Distribution Width 12.6 % (11.5-14.5); WBC 12.1 K/mcL (4.5-11.0)
[2023-01-27 08:50] LABS: ALT/SGPT 14 U/L (<40); AST/SGOT 19 U/L (<32); Albumin 4.4 gm/dL (3.2-5.2); Alkaline Phosphatase 65 U/L (39-117); Bilirubin,Direct < 0.2 mg/dL (0-0.3); Bilirubin,Total 0.4 mg/dL (0.1-1.0); Globulin 2.6 gm/dL (2.2-3.7)
[2023-01-27] MEDS ORDERED: ASPIRIN 81 MG TAB.CHEW CHEWED ONE (10:50)
[2023-01-27 14:49] LABS: Appearance,Urine HAZY (Clear); Bilirubin,Urine NEG (Negative); Color,Urine YELLOW; Culture Indicated,Urine No; Glucose,Urine (UA) NEG (Negative); Ketones,Urine NEG (Negative); Leukocyte Esterase,Urine 500 /uL (Negative); Mucus,Urine FEW /hpf; Nitrate,Urine NEG (Negative); Protein,Urine NEG (Negative); Specific Gravity,Urine 1.029 (1.000-1.035); Urine Blood NEG (Negative); Urine RBC 6 /hpf (0-3); Urine Squamous Epithelial Cell 18 /hpf (0-4); Urine Transitional Epi Cells < 1 /hpf (0-2); Urine WBC 33 /hpf (0-4); Urobilinogen,Urine NEG
[2023-01-27] MEDS ORDERED: ONDANSETRON 4 MG/2 ML VIAL IV PRN (16:54)
[2023-01-27] MEDS ORDERED: ACETAMINOPHEN 325 MG TABLET PO PRN (16:54)
[2023-01-27 18:52] LABS: HDL Cholesterol 47 mg/dL (>40); LDL Cholesterol,Calculated 81 mg/dL (<100); Non-HDL Cholesterol 115 mg/dL (<130); Phosphorous 3.1 mg/dL (2.5-4.5); Thyroid Stimulating Hormone 1.26 uIU/mL (0.27-5.01); Triglycerides 175 mg/dL (<150)
[2023-01-27 19:17] LABS: Estimated Average Glucose(eAG) 100 mg/dL; Hemoglobin A1C 5.1 % Hgb (4.0-6.0)
[2023-01-27] MEDS ORDERED: APIXABAN 5 MG TABLET PO SCH (21:00)
[2023-01-27] MEDS ORDERED: SIMVASTATIN 40 MG TABLET PO SCH (21:45)
[2023-01-27] MEDS: DOCUSATE SODIUM 100 MG CAPSULE PO SCH (22:16)
[2023-01-27] MEDS: SENNOSIDES 1 TABLET PO SCH (22:16)
[2023-01-27] MEDS: GABAPENTIN 300 MG CAPSULE PO SCH (22:16)
[2023-01-27] MEDS: MYCOPHENOLATE 250 MG CAPSULE PO SCH (22:17)
[2023-01-27] MEDS: INSULIN LISPRO 1 UNIT/0.01 ML UNIT SQ SCH (22:18)
[2023-01-27] MEDS: INSULIN GLARGINE, HUMAN 1 UNIT/0.01 ML SQ SCH (22:18)
[2023-01-27] MEDS: 0.9 % SODIUM CHLORIDE 10 ML SYRINGE IV SCH (22:19)
[2023-01-28] MEDS: 0.9 % SODIUM CHLORIDE 10 ML SYRINGE IV SCH ×3 (04:56→21:04)
[2023-01-28] MEDS ORDERED: MYCOPHENOLATE 250 MG CAPSULE PO SCH (07:00)
[2023-01-28 07:09] LABS: Basophils # (Auto) 0.08 K/mcL (0.00-0.30); Basophils % (Auto) 0.8 % (0.0-2.0); Eosinophils # (Auto) 0.12 K/mcL (0.00-0.70); Eosinophils % (Auto) 1.2 % (0.0-7.0); Hematocrit 39.7 % (34.1-44.9); Hemoglobin 12.1 g/dL (11.2-15.7); Lymphocytes # (Auto) 2.94 K/mcL (1.50-4.80); Lymphocytes % (Auto) 28.8 % (15.5-49.0); Mean Cell Volume 93.6 fL (80.0-100.0); Mean Corpuscular HGB Conc 30.5 g/dL (31.0-36.0); Mean Platelet Volume 9.7 fL (8.8-12.5); Monocytes # (Auto) 0.87 K/mcL (0.10-0.90); Monocytes % (Auto) 8.5 % (1.0-12.0); Neutrophils % (Auto) 60.1 % (38.0-78.0); Platelet Count 349 K/mcL (140-440); RBC 4.24 M/mcL (3.59-5.38); Red Cell Distribution Width 12.5 % (11.5-14.5); WBC 10.2 K/mcL (4.5-11.0)
[2023-01-28] MEDS: predniSONE 5 MG TABLET PO SCH (07:21)
[2023-01-28] MEDS: MYCOPHENOLATE 250 MG CAPSULE PO SCH ×2 (07:22→21:03)
[2023-01-28] MEDS ORDERED: INSULIN LISPRO 1 UNIT/0.01 ML UNIT SQ SCH (07:30)
[2023-01-28] MEDS: INSULIN LISPRO 1 UNIT/0.01 ML UNIT SQ SCH ×4 (07:45→21:03)
[2023-01-28 07:46] LABS: Blood Urea Nitrogen 31 mg/dL (8-23); Calcium 9.3 mg/dL (8.6-10.4); Carbon Dioxide 25 mmol/L (22-30); Chloride 103 mmol/L (96-108); Glomerular Filtration Rate 65; Glucose 109 mg/dL (70-105)
[2023-01-28] MEDS ORDERED: ATORVASTATIN 40 MG TABLET PO ONE (08:45)
[2023-01-28] MEDS ORDERED: AMOXICILLIN/POTASSIUM CLAV 875 MG TABLET PO ONE (08:53)
[2023-01-28] MEDS ORDERED: INSULIN GLARGINE, HUMAN 1 UNIT/0.01 ML SQ SCH (09:00)
[2023-01-28] MEDS: DOCUSATE SODIUM 100 MG CAPSULE PO SCH ×2 (09:05→20:40)
[2023-01-28] MEDS: FUROSEMIDE 40 MG TABLET PO SCH (09:06)
[2023-01-28] MEDS: APIXABAN 5 MG TABLET PO SCH ×2 (09:07→21:02)
[2023-01-28] MEDS: SPIRONOLACTONE 25 MG TABLET PO SCH (09:08)
[2023-01-28] MEDS: VITAMIN D3 25 MCG TABLET PO SCH (09:09)
[2023-01-28] MEDS: LOSARTAN 50 MG TABLET PO SCH (09:09)
[2023-01-28] MEDS: ASPIRIN 325 MG ENTERIC COATED TABLET PO SCH (09:10)
[2023-01-28] MEDS: INSULIN GLARGINE, HUMAN 1 UNIT/0.01 ML SQ SCH ×2 (09:10→21:03)
[2023-01-28] MEDS: SENNOSIDES 1 TABLET PO SCH (20:40)
[2023-01-28] MEDS ORDERED: ATORVASTATIN 40 MG TABLET PO SCH (21:00)
[2023-01-28] MEDS ORDERED: SIMVASTATIN 40 MG TABLET PO SCH (21:00)
[2023-01-28] MEDS ORDERED: GABAPENTIN 300 MG CAPSULE PO SCH (21:00)
[2023-01-28] MEDS: GABAPENTIN 300 MG CAPSULE PO SCH (21:04)
[2023-01-29] MEDS: 0.9 % SODIUM CHLORIDE 10 ML SYRINGE IV SCH (05:57)
[2023-01-29 06:50] LABS: Basophils # (Auto) 0.05 K/mcL (0.00-0.30); Basophils % (Auto) 0.5 % (0.0-2.0); Eosinophils # (Auto) 0.12 K/mcL (0.00-0.70); Eosinophils % (Auto) 1.2 % (0.0-7.0); Hematocrit 38.6 % (34.1-44.9); Hemoglobin 11.6 g/dL (11.2-15.7); Lymphocytes # (Auto) 2.99 K/mcL (1.50-4.80); Lymphocytes % (Auto) 28.9 % (15.5-49.0); Mean Cell Volume 94.8 fL (80.0-100.0); Mean Corpuscular HGB Conc 30.1 g/dL (31.0-36.0); Mean Platelet Volume 9.5 fL (8.8-12.5); Monocytes # (Auto) 0.95 K/mcL (0.10-0.90); Monocytes % (Auto) 9.2 % (1.0-12.0); Neutrophils % (Auto) 59.6 % (38.0-78.0); Platelet Count 301 K/mcL (140-440); RBC 4.07 M/mcL (3.59-5.38); Red Cell Distribution Width 12.5 % (11.5-14.5); WBC 10.4 K/mcL (4.5-11.0)
[2023-01-29 07:15] LABS: Blood Urea Nitrogen 30 mg/dL (8-23); Calcium 9.4 mg/dL (8.6-10.4); Carbon Dioxide 25 mmol/L (22-30); Chloride 106 mmol/L (96-108); Glomerular Filtration Rate 65; Glucose 88 mg/dL (70-105)
[2023-01-29] MEDS: MYCOPHENOLATE 250 MG CAPSULE PO SCH (07:26)
[2023-01-29] MEDS: predniSONE 5 MG TABLET PO SCH (07:26)
[2023-01-29] MEDS: INSULIN LISPRO 1 UNIT/0.01 ML UNIT SQ SCH ×2 (08:33→11:37)
[2023-01-29] MEDS: LOSARTAN 50 MG TABLET PO SCH (09:49)
[2023-01-29] MEDS: FUROSEMIDE 40 MG TABLET PO SCH (09:49)
[2023-01-29] MEDS: APIXABAN 5 MG TABLET PO SCH (09:49)
[2023-01-29] MEDS: SPIRONOLACTONE 25 MG TABLET PO SCH (09:50)
[2023-01-29] MEDS: ASPIRIN 325 MG ENTERIC COATED TABLET PO SCH (09:50)
[2023-01-29] MEDS: VITAMIN D3 25 MCG TABLET PO SCH (09:50)
[2023-01-29] MEDS: INSULIN GLARGINE, HUMAN 1 UNIT/0.01 ML SQ SCH (09:54)
[2023-01-29] MEDS: DOCUSATE SODIUM 100 MG CAPSULE PO SCH (11:37)
[2023-02-04 00:58] LABS: Beta-2 GPI IGG ABS <2.0 U/mL; Beta-2 GPI IGM ABS <2.0 U/mL; Beta-2-GPI IGA ABS 7.6 U/mL
== END 2023-01-29 13:10 | disposition home or self-care (01) | DRG 65 ==
LOC: ICU 07:12 → ED 07:12 → OBSVTOIN 16:50 → ICU 16:50
PROVIDERS: ADMIT Internal Medicine Critical Care Medicine; ATTEND Internal Medicine Critical Care Medicine